=== PATIENT | female | born 1970 | race African-American/Black ===

== ENCOUNTER 2022-04-12 00:42 | Day surgery (SDC) | payer BC, SELFPAY ==
[2022-03-29 16:31] VITALS: BMI 27.1
--- NOTE | 2022-03-29 16:50 | SUR.PREOP ---
Report to the Outpatient Waiting Room, entrance under the green pavilion located off [facility], at time 0700 on date 04/12/2022. Planned Procedure Time: 0900. Time changes happen often and if your time is changed the preop area will call you the afternoon before. - You and your visitor will be asked to self-screen and do not enter if you have any COVID symptoms. - Only one visitor is requested with a max of two and NO children visitors are allowed at this time. - The patient visitor may be requested to leave or wait in car when not with patient due to distancing restrictions. - A mask is optional within the hospital at this time. Patients may have clear liquids (water, carbonated beverages, clear teas, apple juice) until 3 hours prior to surgery with a maximum of 20 ounces- 0600. - No food from midnight until time of surgery - Infants may have breast milk until 4 hours before surgery, formula 6 hours prior to surgery. - Children will be allowed to drink immediately following surgery. If applicable, please bring a bottle or sippy cup to assist with drinking. Juice, water, soda, and popsicles are readily available. For infants on formula, please bring formula the day of surgery. Pacifiers are allowed. Take the following medications with a SIP of water the morning of surgery: N/A DO NOT STOP ANY OF YOUR OTHER PRESCRIPTION MEDICATIONS PRIOR TO SURGERY ?EXCEPT THE FOLLOWING Medications to discontinue per physician: Vitamin D, Multivitamin, supplements Date to take last dose: 04/09/2022 Please no make-up, nail yi, hairspray, perfume, deodorant, or body powder the day of surgery. No jewelry (including any body piercings) or valuables the day of surgery, leave them at home. Please take a shower or bath the night before, or the morning of, surgery with an antibacterial soap. Wear comfortable, loose fitting clothing. Children are encouraged to wear pajamas. - Jewelry must be removed prior to entering the operating room. Rings and piercings that are not removed may be cut off. - The hospital will not accept responsibility for valuables. - Please leave all valuables, including medications, at home the day of surgery. If you are going home after surgery, a licensed deliver driver must drive you home. - NO public transportation without another adult if you receive anesthesia. - We recommend that an adult stay with you for 24 hours following discharge. - We also recommend that you do not drive, make important decision, drink alcoholic beverages, or take any drugs that were not prescribed by your health care provider for at least 24 hours after your discharge time. For Pediatric surgeries, we recommend two adults accompany the child home. Follow any additional instructions given to you from your surgeon. If you or anyone in your household have experienced Covid symptoms in the past week, please notify your surgeon or the nurse liaison at the phone number below for possible testing. Telephone instructions given to patient and asked if any additional questions and then verbalized understanding. Patient advised to call surgeon office or pre surgery nurse liaison [phone] if any additional questions.
[2022-04-12 07:10] VITALS: BP 114/69; PULSE 64; RESP 16; TEMP 36.3; O2SAT 100
--- NOTE | 2022-04-12 07:22 | WPDHPUPDATE1 ---
History and Physical Update Update Date/Time: 04/12/22 07:22 History and Physical has been reviewed, including an updated exam of the patient. There are NO changes in the patient's condition. Risks, benefits, and alternatives have been discussed and questions answered. Patient agrees to proceed with procedure.
--- NOTE | 2022-04-12 07:22 | PM.HPGS ---
History of Present Illness History of Present Illness Consent: Risks, benefits, and alternatives have been discussed and questions answered. Patient agrees to proceed with procedure. Chief complaint: menorrhagia Narrative: Belen Cummings is a 51 year old female with heavy cycles. Patient bleeding through a pad and tampon every 60 to 90 minutes on her heavy days. Patient with known fibroids. It was recommended to proceed with D&C hysteroscopy. Risks infection, bleeding, perforation, and fluid imbalance are reviewed. Possible pathology was discussed. Patient voices understanding and agrees to proceed. Review of Systems Review of Systems: not repeated day of surgery; patient states no changes in status [facility] Past Medical History Medical History (Updated 04/12/22 @ 07:25 by Sandi Dawn MD) GERD (gastroesophageal reflux disease) (normal spontaneous vaginal delivery) x3 Social History Social History Smoking status: Current some day smoker Tobacco type: cigars Second hand tobacco smoke exposure: Yes Additional smoking assessment comments: smokes a cigar once per month Alcohol intake: current Drinks per week: 4 Living arrangements: with family Spiritual care concerns: No Meds Home Medications and Allergies Home Medications Medication Instructions Recorded Confirmed Type cholecalciferol (vitamin D3) 125 See Rx Instructions .Route .COMPLEX 03/29/22 03/29/22 History mcg (5,000 unit) tablet (Vitamin D3) multivitamin with minerals-folic 1 tablet PO BID 03/29/22 03/29/22 History acid 0.4 mg tablet pantoprazole 40 mg tablet,delayed 40 mg PO DAILY 03/29/22 03/29/22 History release Allergies Allergy/AdvReac Type Severity Reaction Status Date / Time No Known Allergies Allergy Verified 04/12/22 07:22 Exam Const: General: healthy appearing and alert Orientation/consciousness: patient oriented x3 Resp: Effort & Inspection: normal respiratory effort GI: GI Palp: Yes Soft to palpation, No Tenderness to palpation present (GI) and No Palpable mass present : External Female Exam: normal external appearance Speculum Exam - Vagina: normal appearance of the vagina and normal vaginal discharge Speculum Exam - Cervix: normal appearance of the cervix Bimanual exam- vagina & uterus: enlarged ( about 14 week size and firm) Bimanual Exam- Adnexa, other: normal adnexae and No adnexal tenderness Neuro: General: patient oriented x3 Assessment and Plan Assessment and plan (1) Menorrhagia: Code(s): N92.0 - Excessive and frequent menstruation with regular cycle Status: Acute Assessment and Plan: plan to proceed with D&C hysteroscopy
[2022-04-12 07:23] VITALS: BMI 26.9
[2022-04-12] MEDS: ACETAMINOPHEN 500 MG TABLET 1000 MG PO (07:34)
--- NOTE | 2022-04-12 07:58 | P.PNAN_ITS ---
Anes - Initial Pre Proc Eval Procedure: Operation Date: 04/12/22 09:00 Proposed Procedures p Hysteroscopy Dilation and Curettage - Sandi Dawn MD Date/Time: 04/12/22 07:58 Surgeon: Sandi Dawn MD Pre Op Diagnosis: menorrhagia Patient Data Age: 51 Gender: F Height: 1.61 m Weight: 70.05 kg Last Vital Signs Temp 36.3 C L 04/12/22 07:10 Pulse 64 04/12/22 07:10 Resp 16 04/12/22 07:10 BP 114/69 04/12/22 07:10 Pulse Ox 100 04/12/22 07:10 O2 Del Method Room Air 04/12/22 07:10 Allergies Allergy/AdvReac Type Severity Reaction Status Date / Time No Known Allergies Allergy Verified 04/12/22 07:22 Home Medications Medication Instructions Recorded Confirmed Type cholecalciferol (vitamin D3) 125 See Rx Instructions .Route .COMPLEX 03/29/22 03/29/22 History mcg (5,000 unit) tablet (Vitamin D3) multivitamin with minerals-folic 1 tablet PO BID 03/29/22 03/29/22 History acid 0.4 mg tablet pantoprazole 40 mg tablet,delayed 40 mg PO DAILY 03/29/22 03/29/22 History release Patient hx anesthesia problems: none Family hx anesthesia problems: none Results Review: All pre-operative results and documents have been reviewed as part of the pre- operative evaluation. PMF[facility] Past Medical History Medical History GERD (gastroesophageal reflux disease) (normal spontaneous vaginal delivery) x3 Social History Social History Smoking status: Current some day smoker Tobacco type: cigars Second hand tobacco smoke exposure: Yes Additional smoking assessment comments: smokes a cigar once per month Alcohol intake: current Drinks per week: 4 Living arrangements: with family Spiritual care concerns: No Anes - Eval Final PreProcedure Day of Procedure 04/12/22 07:58 Patient weight: overweight Heart: regular rate and rhythm Lungs: clear to auscultation Airway: Mallampati scale class II Neurological: alert and oriented Last oral intake: >/= 8 hours ASA classification: II Emergent: no Anesthetic plan: proceed Anesthesia type and monitoring: general GIVS and standard monitoring Results Review: All pre-operative results and documents have been reviewed as part of the pre- operative evaluation. Informed Consent: The patient's anesthetic plan and its attendant risks and benefits were discussed with the patient/family/POA. Questions were solicited and answers provided to the satisfaction of the patient/family/POA.
[2022-04-12] MEDS: LACTATED RINGERS 1,000 ML 30 ML IV CONT (08:03)
[2022-04-12] MEDS: KETOROLAC 30 MG/ML VIAL (*BKC) IV PUSH (09:00)
[2022-04-12] MEDS: LIDOCAINE 1% BUFFERED WITH 8.4% SODIUM BICARB 1 ML SYRINGE 10 ML INFILTRATE (09:00)
--- NOTE | 2022-04-12 09:08 | W.PM.PROC2 ---
Procedure Note - Detailed Date of Procedure 04/12/22 Pre-op Diagnosis menorrhagia Post-op Diagnosis Same Procedure Performed D&C hysteroscopy with myomectomy Surgeon Sandi Dawn MD Anesthesia MAC and Local Findings the uterus sounds to 9cm; large posterior left fundal fibroid; several polyps at the endometrial cervical junction Description of Procedure The patient is taken to the operating room and placed under anesthesia in the dorsal lithotomy position. She was prepped and draped in the usual sterile fashion. [place] speculum was placed in the vagina and the cervix grasped on the anterior lip with a tenaculum. The cervix is injected in each quadrant with 1% lidocaine. The small dilator was required to enter the endometrial cavity. The uterus then sounds to 9cm. The hysteroscope was then placed with the above-stated findings. The Aveta resection blade is then placed and under direct visualization the polyps and fibroid is are removed in their entirety. The hysteroscope was then removed and the medium sharp curette used to curette the endometrium until a good uterine cry was noted in all areas. All instruments were then removed. Sponge, needle, and instrument counts are correct per the OR staff. Patient was awakened from anesthesia and taken to recovery in stable condition. Estimated Blood Loss 10 Drains No Packing No Pathology Yes ( Endometrial shavings and curettings) Complications No immediate complications Condition Stable Disposition PACU
[2022-04-12 09:11] VITALS: BP 113/60; PULSE 77; RESP 16; O2SAT 97
[2022-04-12] MEDS: oxyCODONE HCL (*CRX) 5 MG TAB IR PO (09:40)
[2022-04-12 09:41] VITALS: BP 103/63; PULSE 55; RESP 16; O2SAT 100
[2022-04-12 10:17] VITALS: BP 121/70; PULSE 56; RESP 16; O2SAT 100
== END 2022-04-12 10:37 | disposition home or self-care (01) ==
PROVIDERS: PCP Physician Assistant Medical; Visit Provider Obstetrics & Gynecology Gynecology
PROC: 0U5B8ZZ Destruction of Endometrium, Via Natural or Artificial Opening Endoscopic (ICD-10-PCS; CPT 58563; principal; 2022-04-12 09:00)
DX: N92.0 Excessive and frequent menstruation with regular cycle (principal); D25.9 Leiomyoma of uterus, unspecified; N84.0 Polyp of corpus uteri; K21.9 Gastro-esophageal reflux disease without esophagitis; Z72.0 Tobacco use
CPT/HCPCS: 58561; 88305; A9270; J1100; J1885; J2250; J2405; J2704; J3010; J7120

== ENCOUNTER 2024-03-12 02:12 | Day surgery (SDC) | payer BC, SELFPAY ==
[2024-03-08 13:02] VITALS: BMI 29.7
--- NOTE | 2024-03-08 13:08 | PC.NURSE ---
Report to the Outpatient Waiting Room, entrance under the green pavilion located off [facility], at time _0830_ on date _[id number]_. Planned Procedure Time: _1030_.? Time changes happen often and if your time is changed the preop area will call you the afternoon before. - You and your visitor will be asked to self-screen and do not enter if you have any COVID symptoms. Please call surgeon if you need to reschedule. - A mask is optional within the hospital at this time. Patients may have clear liquids (water, carbonated beverages, clear teas, apple juice) until 3 hours prior to surgery with a maximum of 20 ounces. - No food from midnight until time of surgery and no smoking. This includes no chewing gum, candy or mints. Take only the following medications with a SIP of water on the morning of surgery: ___None___ DO NOT STOP ANY OF YOUR OTHER PRESCRIPTION MEDICATIONS PRIOR TO SURGERY EXCEPT THE FOLLOWING Medications to discontinue per physician Vitamins Date to take last selh__[id number]__ Please no make-up, nail bermudian, hairspray, perfume, deodorant, or body powder the day of surgery.? No jewelry (including any body piercings) or valuables the day of surgery, leave them at home.? Please take a shower or bath the night before, or the morning of, surgery with an antibacterial soap.? Wear comfortable, loose fitting clothing.? - Jewelry must be removed prior to entering the operating room.? Rings and piercings that are not removed may be cut off. - The hospital will not accept responsibility for valuables.? - Please leave all valuables, including medications, at home the day of surgery. If you are going home after surgery, a licensed driver/refuse collector must drive you home.? - NO public transportation without another adult if you receive anesthesia. - We recommend that an adult stay with you for 24 hours following discharge. - We also recommend that you do not drive, make important decision, drink alcoholic beverages, or take any drugs that were not prescribed by your health care provider for at least 24 hours after your discharge time. Follow any additional instructions given to you from your surgeon. Telephone instructions given to __Belen__and asked if any additional questions and then verbalized understanding. Patient advised to call surgeon office or pre surgery nurse liaison [phone] if any additional questions.
--- NOTE | 2024-03-12 07:53 | P.HP_ITS ---
History of Present Illness History of Present Illness Consent: Risks, benefits, and alternatives have been discussed and questions answered. Patient agrees to proceed with procedure. Chief complaint: menorrhagia, fibroids Narrative: Belen Cummings is a 53 year old female with heavy menstrual cycles. The patient has known fibroids. Cycles have been skipping up to 5 months but when she has them they are quite heavy. The Pap smear in July showed low-grade squ amous intraepithelial cells with endometrial cells present out of phase. Patient with prior colposcopy verifying low-grade by biopsy. It was recommended to undergo D&C hysteroscopy with endocervical curettings. Risks of infection, bleeding perforation, fluid imbalance, and possible pathology are reviewed. Patient voices understanding and agrees to proceed. Review of Systems Review of Systems: not repeated day of surgery; patient states no changes in status PMFSH Past Medical History Medical History (normal spontaneous vaginal delivery) x3 GERD (gastroesophageal reflux disease) Surgical History Surgical History (Updated 03/12/24 @ 07:58 by Sandi Dawn MD) Status post hysteroscopic myomectomy 03/2022 Social History Social History Smoking status: Current some day smoker Tobacco type: cigars Second hand tobacco smoke exposure: Yes Additional smoking assessment comments: Maybe once a month Alcohol intake: current Drinks per week: 5 Living arrangements: with family Spiritual care concerns: No Meds Home Medications and Allergies Home Medications ?Medication ?Instructions ?Recorded ?Confirmed ?Type cholecalciferol (vitamin D3) 125 See Rx Instructions .Route .COMPLEX 03/29/22 03/08/24 History mcg (5,000 unit) tablet (Vitamin D3) multivitamin with minerals-folic 1 tablet PO BID 03/29/22 03/08/24 History acid 0.4 mg tablet Allergies Allergy/AdvReac Type Severity Reaction Status Date / Time No Known Allergies Allergy Verified 03/08/24 13:01 Exam Const: General: healthy appearing and alert Orientation/consciousness: patient oriented x3 Resp: Effort & Inspection: normal respiratory effort GI: GI Palp: Yes Soft to palpation, No Tenderness to palpation present (GI) and No Palpable mass present : External Female Exam: normal external appearance Speculum Exam - Vagina: normal appearance of the vagina and normal vaginal discharge Speculum Exam - Cervix: normal appearance of the cervix Bimanual exam- vagina & uterus: consistency normal and enlarged (Approximately 12 weeks size) Bimanual Exam- Adnexa, other: normal adnexae and No adnexal tenderness Neuro: General: patient oriented x3 Assessment and Plan Assessment and plan (1) Menorrhagia: Code(s): N92.0 - Excessive and frequent menstruation with regular cycle Status: Acute Assessment and Plan: Patient with heavy perimenopausal bleeding. She has known history of fibroids. Plan is to proceed with D&C hysteroscopy for further evaluation.
--- NOTE | 2024-03-12 07:53 | WPDHPUPDATE1 ---
History and Physical Update Update Date/Time: 03/12/24 07:53 History and Physical has been reviewed, including an updated exam of the patient. There are NO changes in the patient's condition. Risks, benefits, and alternatives have been discussed and questions answered. Patient agrees to proceed with procedure.
--- NOTE | 2024-03-12 09:00 | WPDANESEPPF ---
Anes - Initial Pre Proc Eval Procedure: Operation Date: 03/12/24 10:30 Proposed Procedures p Hysteroscopy Dilation and Curettage with Endocervical Curettage - Sandi Dawn MD Date/Time: 03/12/24 09:00 Surgeon: Sandi Dawn MD Pre Op Diagnosis: menorrhagia, fibroids Patient Data Age: 53 Gender: F Height: 1.61 m Weight: 77.3 kg Allergies Allergy/AdvReac Type Severity Reaction Status Date / Time No Known Allergies Allergy Verified 03/08/24 13:01 Home Medications ?Medication ?Instructions ?Recorded ?Confirmed ?Type cholecalciferol (vitamin D3) 125 See Rx Instructions .Route .COMPLEX 03/29/22 03/08/24 History mcg (5,000 unit) tablet (Vitamin D3) multivitamin with minerals-folic 1 tablet PO BID 03/29/22 03/08/24 History acid 0.4 mg tablet Patient hx anesthesia problems: none Family hx anesthesia problems: none Results Review: All pre-operative results and documents have been reviewed as part of the pre-operative evaluation. [facility] Past Medical History Medical History (normal spontaneous vaginal delivery) x3 GERD (gastroesophageal reflux disease) Surgical History Surgical History (Updated 03/12/24 @ 07:58 by Sandi Dawn MD) Status post hysteroscopic myomectomy 03/2022 Social History Social History Smoking status: Current some day smoker Tobacco type: cigars Second hand tobacco smoke exposure: Yes Additional smoking assessment comments: Maybe once a month Alcohol intake: current Drinks per week: 5 Living arrangements: with family Spiritual care concerns: No Anes - Eval Final PreProcedure Day of Procedure 03/12/24 09:00 Patient weight: overweight Heart: regular rate and rhythm Lungs: clear to auscultation Airway: Mallampati scale class II Neurological: alert and oriented Last oral intake: >/= 8 hours ASA classification: II Emergent: no Anesthetic plan: proceed Anesthesia type and monitoring: general GIVS and standard monitoring Results Review: All pre-operative results and documents have been reviewed as part of the pre-operative evaluation. Informed Consent: The patient's anesthetic plan and its attendant risks and benefits were discussed with the patient/family/POA. Questions were solicited and answers provided to the satisfaction of the patient/family/POA.
[2024-03-12 09:31] VITALS: BP 126/78; PULSE 69; RESP 16; TEMP 36.6; O2SAT 100; BMI 29.3
[2024-03-12] MEDS: ACETAMINOPHEN 500 MG TABLET 1000 MG PO (09:33)
[2024-03-12] MEDS: LACTATED RINGERS 1,000 ML 30 ML IV CONT (09:33)
[2024-03-12 09:35] LABS: BEDSIDEPREGUCG Negative (Negative)
[2024-03-12 10:12] VITALS: BP 118/73; PULSE 64; RESP 16; O2SAT 99
--- NOTE | 2024-03-12 10:15 | P.OP_ITS ---
Procedure Note - Detailed Date of Procedure 03/12/24 Pre-op Diagnosis menorrhagia, fibroids Post-op Diagnosis Same Procedure Performed Hysteroscopic myomectomy with D&C Surgeon Sandi Dawn MD Anesthesia MAC Findings 2 cervical polyps noted. Uterus sounds to 8cm. Fibroid noted arising from the left sidewall filling approximately 1/3 of the cavity. Small anterior polyps. Description of Procedure The patient was taken to the operating room and placed under anesthesia dorsal lithotomy position. She was prepped and draped in the usual sterile fashion. [place] speculum was placed in the vagina and the cervix was noted to have polyps. Ring forceps were used to remove polyps. The cervix was then grasped on the anterior lip with a tenaculum and uterus is sounded to 8cm. The hysteroscope was placed and with the above-stated findings the Flex Aveta resection device was placed. Under direct visualization the fibroid is removed in its entirety in addition the polyps are removed using the resection device. The hysteroscope was then removed. The endometrium is curetted with a sharp curette until a good uterine cry was noted in all areas. The [place] curette used to perform an endocervical curetting. The curettings were then removed usi ng an endo brush. All instruments are removed. Sponge, needle, and instrument counts are correct per the OR staff. The patient was awakened from anesthesia and taken to recovery in stable condition. Estimated Blood Loss 5 Drains No Packing No Pathology Yes (Endocervical polyps and curettings; endometrial shavings and curettings) Complications No immediate complications Condition Stable Disposition PACU
[2024-03-12 10:30] VITALS: BP 118/73; PULSE 64; RESP 15; O2SAT 99
[2024-03-12] MEDS: oxyCODONE HCL (*CRX) 5 MG TAB IR PO (10:57)
[2024-03-12 11:00] VITALS: BP 152/84; PULSE 55; RESP 16
[2024-03-12 11:20] VITALS: BP 122/71; PULSE 57; RESP 16
--- OUTSIDE RECORDS SUMMARY | 2024-03-15 11:12 | XMS_ITS | Clinical Summary ---
Author Organization [facility] Address [address] [place] [address]. [place], [place] [address] [place] [address] Care Team Providers Care Stopperer Assembler Name Role Phone Mono Dukes MD Primary Care Provider [phone] Allergies No known active allergies Medications pantoprazole EC 40 MG tablet Take 40 mg by mouth daily. Active Family History Medical History Relation Comments Colon Cancer Father Relation Status Comments Father Social History Tobacco Use Types Packs/Day Years Used Date Smoking Tobacco: Never Smokeless Tobacco: Never Alcohol Use Standard Drinks/Week Comments Yes 0 (1 standard drink = 0.6 oz pur e alcohol) socially Comments Unknown Sex and Gender Information Value Date Recorded Sex Assigned at Not on file Legal Sex Female 9:44 AM CDT Gender Identity Not on file Sexual Orientation Not on file Last Filed Vital Signs Vital Sign Reading Time Taken Comments Blood Pressure 115/79 01/09/2020 3:31 PM KILN REPAIRER Pulse 72 01/09/2020 3:31 PM KILN REPAIRER Temperature 36.6 ??C (97.8 ??F) 01/09/2020 3:17 PM CS T Respiratory Rate 18 01/09/2020 3:31 PM KILN REPAIRER Oxygen Saturation 100% 01/09/2020 3:31 PM KILN REPAIRER Inhaled Oxygen Concentration - - Weight 67.1 kg (148 lb) 01/04/2020 3:44 PM KILN REPAIRER Height 160 cm (5' 3 ) 01/04/2020 3:44 PM KILN REPAIRER Body Mass Index 26.22 01/04/2020 3:44 PM KILN REPAIRER Plan of Treatment Health Maintenance Due Date Last Done Comments Cervical Cancer Screening Pa p Smear (Age 30 to 64) Every 3 Years 1970 Annual Physical 1973 Hepatitis C 1988 DTaP, Tdap and Td Vaccines ( 1 - Tdap) 1989 Hepatitis B Vaccines (1 of 3 - 19+ 3-dose series) 1989 Cervical Cancer Screening Pa p with HPV Testing (Age 30 to 64) Every 5 Years 2000 Cervical Cancer Screening wi th HPV 2000 Mammogram Screening 2010 Zoster Vaccines (1 of 2) 2020 COVID-19 Vaccine (2023-2 5 season) 2023 Influenza Adult (#1) 2023 Colorectal Cancer Screening Colonoscopy (10 Years) 01/08/2030 01/09/2020, 01/09/2020 Meningococcal Vaccine Aged Out No jil jen eligible based on patient's age to complete this topic Pneumococcal Vaccine: Pediatrics (0 to 5 Years) and At-Risk Patients (6 to 64 Years) Aged Out No longer eligible b ased on patient's age to complete this topic RSV Immunizations Under 20 Months Aged Out No longer eligible b ased on patient's age to complete this topic Procedures Procedure Name Priority Date/Time Associated Diagnosis Comments COLONOSCOPY Routine 01/09/2020 2:38 PM KILN REPAIRER from Last 3 Months or Most Recently Relevant to Health Maintenance Results * Colonoscopy (01/09/2020 2:38 PM KILN REPAIRER) Narrative Aleksandr Montano MD - 01/09/2020 2:38 PM KILN REPAIRER Aleksandr Montano MD ? 01/09/2020 ??3:10 PM ALEKSANDR MONTANO MD, FACG, FACP COLONOSCOPY This is a 49-year-old female with history of GERD who now presents for colonoscopy for family history of colon cancer in her father. ?? GI review of systems is otherwise negative. No endocarditis risk factors. NKDA. Medications: see list. WDWN/NAD. VITALS: Stable. LUNGS: Clear. HEART: RRR. S1/S2 normal. ABDOMEN: NABS.NT. The procedure of colonoscopy, ??its indications, ??alternatives of barium studies and risks including perforation, bleeding, infection, reaction to medication as well as the possible need for blood or surgery were discussed with the patient prior to the procedure. The patient voices understanding, agrees to proceed and provides informed consent. INDICATION: Screening for colon cancer/Family history of colon cancer. POST-OP: One polyp removed. SEDATION: Per anesthesia. PREP: Good. With the patient in the left lateral decubitus position, the Olympus [id number] ??colonoscope was introduced into the rectum and advanced easily to the Terminal Ileum. Careful inspection of the mucosa was made upon insertion and withdrawal of the endoscope. FINDINGS: Terminal ileum: distal 5 cm normal. Cecum, transverse colon, descending colon, sigmoid colon and rectum including retroflexion normal. Ascending colon: 5 mm sessile polyp removed with cold biopsy forceps. No masses, AVMs, diverticulosis or colitis seen. No complications, blood loss or implants. ASSESSMENT AND PLAN: Screening for colon cancer/Family history of colon cancer: - One small polyp removed - If no cancer, repeat colonoscopy in five years Thank you for allowing me to care for your patient. She will follow-up with Dr. Dukes as needed. Aleksandr Montano M.D. Aleksandr Montano MD GI PROCEDURE ORDERABLES Fin al Result from Last 3 Months or Most Recently Relevant to Health Maintenance Insurance [employer] Care Teams Stopperer Assembler Relationship Specialty Start Date End Date Mono Dukes MD PCP - General FAMILY PRACTICE 01/09/20
--- OUTSIDE RECORDS SUMMARY | 2024-03-15 11:12 | XMS_ITS | Encounter Summary ---
Author Organization [facility] Address [address] [place] [address]. [place], [place] [address] [place] [address] Care Team Providers Care Parts Identification Technician Name Role Phone Mono Dukes MD Primary Care Provider [phone] Encounter Details Date Type Department Care Team (Late st Contact Info) Description 01/06/2020 Prep for Procedure [facility] [place], [place] [address] Aleksandr Montano MD 3 [facility] [place] [address] [place] [address] Social History Tobacco Use Types Packs/Day Years Used Date Smoking Tobacco: Never Smokeless Tobacco: Never Alcohol Use Standard Drinks/Week Comments Yes 0 (1 standard drink = 0.6 oz pur e alcohol) socially Comments Unknown Sex and Gender Information Value Date Recorded Sex Assigned at Not on file Legal Sex Female 9:44 AM CDT Gender Identity Not on file Sexual Orientation Not on file COVID-19 Exposure Response Date Recorded In the last month, have you been in contact with someone who was confirmed or suspected to have Coronavirus / COVID-19? No / Unsure 01/09/2020 12:23 PM ADMINISTRATIVE AND PROGRAM SPECIALIST documented as of this encounter Plan of Treatment Not on file documented as of this encounter Results * PRE-SURGICAL/PRE-PROCEDURE CORONAVIRUS (COVID 19) (01/06/2020 11:33 AM ADMINISTRATIVE AND PROGRAM SPECIALIST) CORONAVIRUS SARS COV 2 PCR (RESP) NOT DETECTED NOT DETECTED 01/07/2020 4:40 PM ADMINISTRATIVE AND PROGRAM SPECIALIST [facility] Comment: A Not Detected (negative) test result for this test means that SARS- CoV-2 RNA was not present in the specimen above the limit of detection. A negative result does not rule out the possibility of COVID-19 and should not be used as the sole basis for treatment or patient management decisions. ??If COVID-19 is still suspected, based on exposure history together with other clinical findings, re-testing should be considered in consultation with public health authorities. Laboratory test results should always be considered in the context of clinical observations and epidemiological data in making a final diagnosis and patient management decisions. Please review the Fact Sheets and FDA authorized labeling available for health care providers and patients using the following websites: https://www.[employer].iCook.tw/home/Covid-19/HCP/Quest[facility]/fact- sheet.html https://www.[employer].iCook.tw/home/Covid-19/Patients/ QuestIVD/fact-sheet.html This test has been authorized by the FDA under an Emergency Use Authorization (EUA) for use by authorized laboratories. Due to the current public health emergency, [facility] is receiving a high volume of samples from a wide variety of swabs and media for COVID-19 testing. In order to serve patients during this public health crisis, samples from appropriate clinical sources are being tested. Negative test results derived from specimens received in non-commercially manufactured viral collection and transport media, or in media and sample collection kits not yet authorized by FDA for COVID-19 testing should be cautiously evaluated and the patient potentially subjected to extra precautions such as additional clinical monitoring, including collection of an additional specimen. Methodology: ??Nucleic Acid Amplification Test (NAAT) includes RT-PCR or TMA Additional information about COVID-19 can be found at the [facility] website: www.[employer].iCook.tw/Covid19. Test performed at [facility] [place] [id number] [place] [address] ??[id number] Director: ROSEMARY GAN DO,MPH FIRST TEST YES 01/06/2020 12:30 PM [facility] EMPLOYED IN HEALTHCARE NO 01/06/2020 12:30 PM [facility] SYMPTOMATIC DEFINED BY CDC NO 01/06/2020 12:30 PM [facility] DATE OF SYMPTOM ONSET NO 01/06/2020 2:06 PM ADMINISTRATIVE AND PROGRAM SPECIALIST [facility] HOSPITALIZATION STATUS NO 01/06/2020 12:30 PM ADMINISTRATIVE AND PROGRAM SPECIALIST [facility] PATIENT IN ICU NO 01/06/2020 12:30 PM ADMINISTRATIVE AND PROGRAM SPECIALIST [facility] RESIDENT OF [facility] NO 01/06/2020 12:30 PM ADMINISTRATIVE AND PROGRAM SPECIALIST [facility] NOT 01/06/2020 12:30 PM ADMINISTRATIVE AND PROGRAM SPECIALIST [facility] PATIENT'S RACE PATIENT DECLINED 12/22 12:30 PM ADMINISTRATIVE AND PROGRAM SPECIALIST [facility] ETHNICITY PATIENT DECLINED 01/06/20 12:30 PM ADMINISTRATIVE AND PROGRAM SPECIALIST [facility] SOURCE (QST) NASOPHARYNGEAL SWAB 01/06/2020 12:30 PM ADMINISTRATIVE AND PROGRAM SPECIALIST [facility] NASOPHARYNGEAL SWAB / Unknown 01/06/2020 11:33 AM ADMINISTRATIVE AND PROGRAM SPECIALIST us Aleksandr Montano MD MICROBIOLOGY - GENERAL CINDY SHAH Final Result [facility] [address] [place] [address], [place] [address], documented in this encounter Visit Diagnoses Diagnosis Screen for colon cancer- Primary Special screening for malignant neoplasms, colon Family history of colon cancer Family history of malignant neoplasm of gastrointestinal tract documented in this encounter Additional Health Concerns Infection Onset Date Last Indicated Resolved Time COVID-19 Rule Out 01/06/2020 01/06/2020 01/07/2020 4:40 PM ADMINISTRATIVE AND PROGRAM SPECIALIST documented as of this encounter Care Teams Parts Identification Technician Relationship Specialty Start Date End Date Mono Dukes MD PCP - General FAMILY PRACTICE 01/09/20 documented as of this encounter
--- OUTSIDE RECORDS SUMMARY | 2024-03-15 11:12 | XMS_ITS | Clinical Summary ---
Author Organization [address] Address [address] [place] [id number] Care Team Providers Care Supervisor Ore Dressing Name Role Phone Tommy Guallpa Primary Care Provider [phone] Sandi Dawn MD Unavailable [phone] Medications pantoprazole (PROTONIX) 40 mg EC tabletIndication s:Gastroesophage al reflux disease with esophagitis without hemorrhage TAKE 1 TABLET(40 MG) BY MOUTH DAILY 30 tablet 2 3 Active Additional Information Patient not taking.Reported on 05/09/2023 Active Problems Problem Noted Date Diagnosed Date Annual physical exam 05/09/2023 Elevated cholesterol 05/09/2023 Gastroesophageal reflux disease with esophagitis 09/13/2019 Assessment & Plan (03/02/2021 9:08 AM OCCUPATIONAL SAFETY SPECIALIST): Chronic condition Uncontrolled Start protonix Refer to [facility] for egd. Assessment & Plan (08/21/2020 10:04 AM CDT): Chronic condition uncontrolled Refer to dr alcantara for EGD D/c nexium Start dexilant Assessment & Plan (05/20/2020 5:05 PM CDT): Chronic condition not well controlled Intolerant to pantoprazole. Less effectiveness with pepcid. ruq abd ultrasound. R/o gallstones. Start nexium D/c pepcid. Assessment & Plan (09/13/2019 5:39 PM CDT): Start protonix 40mg every day new start Immunizations Name Administration Dates Next Due Influenza, Unspecified 05/09/2023(Deferr ed: Patient decision),05/06/2022(Deferred: Patient Refused),03/02/2021(Deferred: Patient Refused) Pfizer SARS-CoV-2 Monovalent Vaccination (12+ Yrs) PURPLE 02/10/2021,05/26/2020,05/02/2020 Pneumococcal Conjugate Pcv20 05/06/2022(Deferred : Patient Refused) Pneumococcal Polysaccharide PPV23 05/06/2022(Def erred: Patient Refused) Surgical History Surgery Date Site/Laterality Comments COLONOSCOPY Medical History Medical History Date Comments Fibroids Constipation intermittent GERD (gastroesophageal reflux disease) Family History Medical History Relation Name Comments No Known Problems Brother No Known Problems Daughter 1 No Known Problems Daughter 2 Colon cancer Father Diabetes Father Hypertension Mother Breast cancer Paternal Grandmother No Known Problems Son Relation Name Status Comments Brother Alive Daughter 1 Alive Daughter 2 Alive Father Alive Mother Alive Paternal Grandmother Son Alive Social History Tobacco Use Types Packs/Day Years Used Date Smoking Tobacco: Some Days Cigars Started: 08/22/2019 Smokeless Tobacco: Never Tobacco Cessation:Ready to Q uit: No Comments:social smoker. Alcohol Use Standard Drinks/Week Comments Yes 0 (1 standard drink = 0.6 oz pur e alcohol) Socially AUDIT-C Answer Date Recorded Q1: How often do you have a drink containing alc ohol? 2-3 times a week 05/09/2023 Q2: How many drinks containi ng alcohol do you have on a typical day when you are drinking? 3 or 4 05/09/2023 Q3: How often do you have si x or more drinks on one occasion? Never 05/09/2023 PHQ-2 Answer Date Recorded PHQ-2 Total Score (If total score is 3 or more points, staff should administer the PHQ-9) 0 05/09/2023 Personal Safety Answer Date Recorded Getting School Help Needed Not on file 04/23 Comments No Sex and Gender Information Value Date Recorded Sex Assigned at Not on file Legal Sex Female 7:03 PM OCCUPATIONAL SAFETY SPECIALIST Gender Identity Not on file Sexual Orientation Not on file Obstetrics History Para Term AB IAB SAB Ectopic Multiple Livin g Live Births 3 3 3 Date Outcome GA Total Labor Labor//3rd Weight Sex Type Anes PTL Cynthia A1 A5 Name Clin Term Term Term Last Filed Vital Signs Vital Sign Reading Time Taken Comments Blood Pressure 112/70 05/09/2023 8:56 AM CDT Pulse 75 05/09/2023 8:56 AM CDT Temperature 37 ??C (98.6 ??F) 05/09/2023 8:56 AM CDT Respiratory Rate 18 05/06/2022 1:55 PM CDT Oxygen Saturation 99% 05/09/2023 8:56 AM CDT Inhaled Oxygen Concentration - - Weight 72.2 kg (159 lb 3.2 oz) 05/09/2023 8:56 A M CDT Height 161.3 cm (5' 3.5 ) 05/09/2023 8:56 AM CDT Body Mass Index 27.76 05/09/2023 8:56 AM CDT Plan of Treatment Health Maintenance Due Date Last Done Comments Cervical Cancer Screening 1970 Hepatitis C Screening 1970 Pneumococcal vaccine <65 (1 of 2 - PCV) 1976 DTaP/Tdap/Td Vaccine (1 - Tdap) 1981 Hepatitis B Screening 1988 Zoster Vaccine (1 of 2) 2020 Covid-19 Vaccine (5 - 2023-2 5 season) 2023 09/05/2021, 02/10/2021, 05/26/2020, Additional history exists Influenza Vaccine (#1) 2023 Breast Cancer Screening-Mammogram 11/04/2023 11/03/2022, 03/04/2021, 06/06/2018 Depression Screening 05/08/2024 05/09/2023, 05/06/2022, 03/02/2021, Additional history exists Regular Well Visit/Exam 18-64 05/08/2024, 05/06/2022, 03/02/2021, Additional history exists Colon Cancer Screening-Colonoscopy 01/08/20252019 Procedures Procedure Name Priority Date/Time Associated Diagnosis Comments SCREENING MAMMOGRAM BILATERAL W CARRIE Schedule Routine, Read Routine (OP Routine) 11/03/2022 9:01 AM CDT Screening mammogram, encounter for COLONOSCOPY Routine 01/09/2020 from Last 3 Months or Most Recently Relevant to Health Maintenance Results * SCREENING MAMMOGRAM BILATERAL W CARRIE (11/03/2022 9:01 AM CDT) Anatomical Region Laterality Modality Breast Bilateral Mammography Impressions 11/03/2022 9:16 AM CDT BI-RADS?? ATLAS category (overall): 1 - Negative There is no mammographic evidence of malignancy. A 1 year screening mammogram is recommended. The patient has been or will be contacted. We recommend annual screening mammography for women at average risk of breast cancer beginning at age 40, based on guidelines of the [employer] (ACR Practice Parameter for the Performance of Screening and Diagnostic Mammography) and [employer]. For women with and elevated risk of breast cancer, please refer to the ACR Practice Parameter for specific screening recommendations. The patient will be entered into a reminder system with a target due date of 1 year for her next screening exam. Narrative 11/03/2022 9:16 AM CDT SCREENING MAMMOGRAM BILATERAL W CARRIE: 11/03/22 The study was acquired using full field digital technology and interpreted from soft copy. 2D digital mammographic views, as well as 3D digital tomosynthesis were performed in the CC and MLO projections. CLINICAL: ??Screening mammogram. ??No relevant medical history has been documented for this patient. ??History of breast cancer in Paternal Grandmother. COMPARISONS: 03/04/2021 SCREENING MAMMOGRAM BILATERAL W CARRIE 06/06/2018 Screening Mammogram 2D Bilateral BREAST TISSUE: The breasts are heterogeneously dense, which may obscure small masses. FINDINGS: There is no new suspicious finding in either breast on mammogram. ?? Tommy [facility] MAMMO PROCEDURES Final Resu lt * (ABNORMAL) Colonoscopy (01/09/2020) Anatomical Region Laterality Modality Other Historical Provider ENDOSCOPY PROCEDURES Aileen l Result from Last 3 Months or Most Recently Relevant to Health Maintenance Insurance [employer] ACCESS CHOICE [facility] Advance Directives For more information, please contact: [phone] * Full Code (Latest Code Status on File) Date Activated Date Inactivated Comments 04/27/2021 9:38 AM 04/27/2021 3:17 PM Care Teams Supervisor Ore Dressing Relationship Specialty Start Date End Date Tommy Guallpa PA PCP - General Family Medicine 11/18/21 Sandi Dawn MD [facility] [address] [address] Referring Physician Gynecology 05/09/23
--- OUTSIDE RECORDS SUMMARY | 2024-03-15 11:12 | XMS_ITS | Referral Summary ---
Author Organization [address] Address [address] [place] [id number] Care Team Providers Care Coordinator Mining Products Name Role Phone Tommy Guallpa Primary Care Provider [phone] Sandi Dawn MD Unavailable [phone] Medications pantoprazole (PROTONIX) 40 mg EC tabletIndication s:Gastroesophage al reflux disease with esophagitis without hemorrhage TAKE 1 TABLET(40 MG) BY MOUTH DAILY 30 tablet 2 3 Active Additional Information Patient not taking.Reported on 05/09/2023 Active Problems Problem Noted Date Diagnosed Date Annual physical exam 05/09/2023 Elevated cholesterol 05/09/2023 Gastroesophageal reflux disease with esophagitis 09/13/2019 Assessment & Plan (03/02/2021 9:08 AM MIG WELDER): Chronic condition Uncontrolled Start protonix [facility] egd. Assessment & Plan (08/21/2020 10:04 [...] Pneumococcal Polysaccharide PPV23 05/06/2022(Def erred: Patient Refused) Social History Tobacco Use Types Packs/Day Years [...] on file Legal Sex Female 7:03 PM MIG WELDER Gender Identity Not on file Sexual Orientation [...] 05/09/2023 8:56 AM CDT Plan of Treatment Not on file Procedures Procedure Name Priority Date/Time Associated Diagnosis [...] age 40, based on guidelines of the [employer] (ACR Practice Parameter for the Performance of Screening and Diagnostic Mammography) and [employer]. For women [...] Most Recently Relevant to Health Maintenance Insurance [facility] ACCESS CHOICE [facility] CHOICE PLUS [facility] HMO/PPO Address: [address] [address] [place] [address] [employer] ACCESS CHOICE Advance Directives For more information, please contact: [phone] * Full Code (Latest Code Status on File) Date Activated Date Inactivated Comments 04/27/2021 9:38 AM 04/27/2021 3:17 PM Care Teams Coordinator Mining Products Relationship Specialty Start Date End Date Tommy Guallpa PA PCP - General Family Medicine 11/18/21 Sandi Dawn MD [address] [address] Referring Physician Gynecology 05/09/23
== END 2024-03-12 11:40 | disposition home or self-care (01) ==
PROVIDERS: PCP Physician Assistant Medical; Visit Provider Obstetrics & Gynecology Gynecology
PROC: 0U5B8ZZ Destruction of Endometrium, Via Natural or Artificial Opening Endoscopic (ICD-10-PCS; CPT 58563; principal; 2024-03-12 10:30)
DX: N84.1 Polyp of cervix uteri (principal); N85.8 Other specified noninflammatory disorders of uterus; K21.9 Gastro-esophageal reflux disease without esophagitis; F17.290 Nicotine dependence, other tobacco product, uncomplicated; Z98.890 Other specified postprocedural states
CPT/HCPCS: 58561; 88305; A9270; J2250; J2704; J3010; J7120